=== PATIENT | male | born 1940 | race Caucasian/White ===

== ENCOUNTER 2022-10-08 21:55 | Inpatient (IN) | payer MEDICARE ==
[~2022-10-08] VITALS: Ht 180.3 cm; Wt 93.2 kg
--- NOTE | 2022-10-08 22:07 | NUR ---
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
[2022-10-08 22:42] LABS: BASOPHILS % (AUTO) 0.3 % (0-1); EOSINOPHILS # (AUTO) 0.1 X10'3 (0-0.9); EOSINOPHILS % (AUTO) 0.8 % (0-6); HEMATOCRIT 37.1 % (42.0-52.0); HEMOGLOBIN 12.3 g/dl (14.0-17.9); LYMPHOCYTES # (AUTO) 1.6 X10'3 (1.1-4.8); LYMPHOCYTES % (AUTO) 18.4 % (21-51); MEAN CORPUSCULAR HEMOGLOBIN 32.1 PG (27.0-31.0); MEAN CORPUSCULAR HGB CONC 33.2 g/dL (33.0-36.5); MEAN CORPUSCULAR VOLUME 96.7 FL (78-98); MEAN PLATELET VOLUME 9.3 FL (7.4-10.4); MONOCYTES # (AUTO) 0.9 X10'3 (0-0.9); MONOCYTES % (AUTO) 10.3 % (2-12); NEUTROPHILS # (AUTO) 6.1 X10'3 (1.8-7.7); NEUTROPHILS % (AUTO) 70.2 % (42-75); PLATELET COUNT 287 X10'3 (140-440); RED BLOOD COUNT 3.84 X10'6 (4.70-6.10); WHITE BLOOD COUNT 8.7 X10'3 (4.5-11.0)
[2022-10-08 22:58] LABS: ALANINE AMINOTRANSFERASE 6 U/L (12-78); ALBUMIN 3.1 G/DL (3.4-5.0); ALBUMIN/GLOBULIN RATIO 0.8 (1.1-1.5); ALKALINE PHOSPHATASE 50 IU/L (46-116); ANION GAP 11 (8-16); ASPARTATE AMINO TRANSFERASE 18 U/L (10-37); BILIRUBIN,TOTAL 0.7 MG/DL (0.1-1.0); BLOOD UREA NITROGEN 16 MG/DL (7-18); BUN/CREATININE RATIO 10.8 (10.0-20.0); CHLORIDE 105 MMOL/L (99-107); CREATININE 1.48 MG/DL (0.60-1.10); GLUCOSE 99 MG/DL (70-104); POTASSIUM 3.7 MMOL/L (3.5-5.1); SODIUM 142 MMOL/L (135-145); TOTAL CARBON DIOXIDE 26.4 MMOL/L (24-32); eGFR 46 ML/MIN
--- NOTE | 2022-10-09 00:15 | NUR ---
PER SAVITA MORILLO TO D/C NGT
[2022-10-09 00:43] LABS: CLARITY,URINE SLIGHTLY CLOUDY (Clear); COLOR,URINE YELLOW (Yellow); GLUCOSE, URINE NEGATIVE (Neg); KETONES,URINE TRACE mg/dl (Neg); LEUKOCYTE ESTERASE ,URINE NEGATIVE (Neg); NITRITES, URINE NEGATIVE (Neg); OCCULT BLOOD,URINE SMALL (Neg); PROTEIN,URINE TRACE mg/dl (Neg); UROBILINOGEN,URINE 0.2 E.U/dL (0.2-1.0)
[2022-10-09] MEDS ORDERED: magnesium 4gm in 100ml NS 100 ML IV PRN (00:45)
[2022-10-09] MEDS ORDERED: mag hydrox/Alum hydrox/simeth 30ml oral suspension PO PRN (00:45)
[2022-10-09] MEDS ORDERED: potassium Cl 40MEQ/1/2NS 520ml 520 ML IV PRN (00:45)
[2022-10-09] MEDS ORDERED: magnesium 2GM in 50ml NS 50 ML IV PRN (00:45)
[2022-10-09] MEDS ORDERED: acetaminophen 325mg tablet PO PRN (00:45)
[2022-10-09] MEDS ORDERED: ondansetron/PF 4mg/2ml inj IV PRN (00:45)
[2022-10-09] MEDS ORDERED: potassium Cl 20 mEq SR tablet PO PRN (00:45)
[2022-10-09] MEDS ORDERED: PERFLUTREN PROTEIN-A MICROSPHR (Optison) 0.22 MG/ML 3ML VIAL IV PRN (00:45)
[2022-10-09] MEDS ORDERED: magnesium Cl slow-release 64mg tablet PO PRN (00:45)
[2022-10-09] MEDS: normal saline 1000ml 1,000 ML IV SCH ×2 (00:51→02:26)
[2022-10-09 00:52] LABS: UA COLLECTION TYPE FOLEY CATH
[2022-10-09 00:53] LABS: BACTERIA,URINE NONE SEEN /HPF (Neg); WBC,URINE 0-4 /HPF (0-4)
[2022-10-09 00:54] LABS: MUCUS STRANDS FEW /LPF (Neg); RENAL CELLS, URINE FEW /HPF; SQUAMOUS EPITHELIAL CELL,UR FEW /LPF (FEW); TRANSITIONAL EPI CELLS,URINE FEW /HPF
--- NOTE | 2022-10-09 01:04 | NUR ---
NG TUBE DISCONTINUED WITHOUT ISSUE
[2022-10-09] MEDS ORDERED: BICA50TA7 PO (01:40)
[2022-10-09] MEDS ORDERED: ALFU10TA10 PO (01:40)
[2022-10-09] MEDS ORDERED: WARF-55 PO ×2 (01:40→01:45)
[2022-10-09] MEDS ORDERED: M-171CAP PO (01:40)
--- NOTE | 2022-10-09 01:44 | NUR ---
ATTEMPTED TO CALL REPORT. NURSE IS WITH A PATIENT AND WILL CALL BACK IN 5 MINUTES
[2022-10-09] MEDS ORDERED: WARF4TAB69 PO (01:45)
--- NOTE | 2022-10-09 01:50 | NUR ---
Patient in room [facility]TH[facility] 4011. I have received report from Melvi RN and had the opportunity to ask questions and assume patient care.
[2022-10-09 02:00] VITALS: BP 119/48
[2022-10-09 06:40] LABS: MAGNESIUM 1.8 MG/DL (1.5-2.4); POTASSIUM 3.4 MMOL/L (3.5-5.1)
--- NOTE | 2022-10-09 06:42 | NUR ---
Patient in room ORTHO 4011. I have received report from CESAR Dhillno and had the opportunity to ask questions and assume patient care.
[2022-10-09 07:00] VITALS: BP 140/65
[2022-10-09] MEDS: K and/or MAG REPLACEMENT MC SCH ×2 (07:40→20:00)
[2022-10-09] MEDS: docusate sod 100mg capsule PO SCH ×2 (08:20→21:36)
--- NOTE | 2022-10-09 09:51 | NUR ---
PAGER ID: [phone] MESSAGE: Rachel Acuña [id number]. Patient complaining of 8/10 lower abdominal pain. No pain meds ordered. Thank you, Chelita [phone]
[2022-10-09] MEDS: magnesium hydroxide 30ml (MOM) UD suspension PO PRN (09:59)
[2022-10-09] MEDS ORDERED: morphine 2 MG/ML inj. syringe IV PRN (10:40)
[2022-10-09] MEDS ORDERED: bisacodyl 10mg suppository rectal RC STA (10:46)
[2022-10-09 11:00] VITALS: BP 156/64
--- NOTE | 2022-10-09 13:20 | NUR ---
Patient Marcos DC without incident. Will continue to monitor urine output.
[2022-10-09] MEDS: potassium Cl 20 mEq SR tablet PO PRN ×2 (16:55→21:36)
[2022-10-09 18:00] VITALS: BP 161/63
--- NOTE | 2022-10-09 18:23 | NUR ---
Problems reprioritized. Patient report given, questions answered & plan of care reviewed with CESAR Shukla.
[2022-10-09] MEDS ORDERED: alfuzosin 10MG TAB.SR.24H PO SCH (21:00)
[2022-10-09] MEDS ORDERED: warfarin 5mg tablet PO ONE (21:00)
[2022-10-09] MEDS: HYDROcodone/acetaminophen 5mg/325mg tablet PO PRN (21:36)
[2022-10-09 22:00] VITALS: BP 144/66
--- NOTE | 2022-10-09 23:23 | NUR ---
Pt. made aware he needs to bring in home meds.
[2022-10-10 04:22] LABS: BASOPHILS % (AUTO) 0.5 % (0-1); EOSINOPHILS # (AUTO) 0.1 X10'3 (0-0.9); EOSINOPHILS % (AUTO) 0.8 % (0-6); HEMATOCRIT 36.9 % (42.0-52.0); HEMOGLOBIN 12.4 g/dl (14.0-17.9); LYMPHOCYTES # (AUTO) 1.5 X10'3 (1.1-4.8); LYMPHOCYTES % (AUTO) 16.6 % (21-51); MEAN CORPUSCULAR HEMOGLOBIN 32.1 PG (27.0-31.0); MEAN CORPUSCULAR HGB CONC 33.6 g/dL (33.0-36.5); MEAN CORPUSCULAR VOLUME 95.5 FL (78-98); MEAN PLATELET VOLUME 9.7 FL (7.4-10.4); MONOCYTES # (AUTO) 0.8 X10'3 (0-0.9); MONOCYTES % (AUTO) 8.5 % (2-12); NEUTROPHILS # (AUTO) 6.6 X10'3 (1.8-7.7); NEUTROPHILS % (AUTO) 73.6 % (42-75); PLATELET COUNT 276 X10'3 (140-440); RED BLOOD COUNT 3.86 X10'6 (4.70-6.10); RED CELL DISTRIBUTION WIDTH 13.8 % (11.5-14.5)
[2022-10-10 04:43] LABS: ALANINE AMINOTRANSFERASE 13 U/L (12-78); ALBUMIN 2.8 G/DL (3.4-5.0); ALBUMIN/GLOBULIN RATIO 0.8 (1.1-1.5); ALKALINE PHOSPHATASE 45 IU/L (46-116); ANION GAP 12 (8-16); ASPARTATE AMINO TRANSFERASE 18 U/L (10-37); BILIRUBIN,TOTAL 0.7 MG/DL (0.1-1.0); BLOOD UREA NITROGEN 17 MG/DL (7-18); BUN/CREATININE RATIO 13.5 (10.0-20.0); CALCIUM 8.7 MG/DL (8.5-10.1); CHLORIDE 105 MMOL/L (99-107); CREATININE 1.26 MG/DL (0.60-1.10); GLUCOSE 89 MG/DL (70-104); MAGNESIUM 1.9 MG/DL (1.5-2.4); POTASSIUM 3.8 MMOL/L (3.5-5.1); SODIUM 141 MMOL/L (135-145); TOTAL CARBON DIOXIDE 24.2 MMOL/L (24-32); TOTAL PROTEIN 6.4 G/DL (6.4-8.2); eGFR 55 ML/MIN
[2022-10-10] MEDS: HYDROcodone/acetaminophen 5mg/325mg tablet PO PRN (05:45)
[2022-10-10 06:00] VITALS: BP 150/54
--- NOTE | 2022-10-10 06:41 | NUR ---
Gave report to TONIE Larios
--- NOTE | 2022-10-10 06:44 | NUR ---
Patient in room ORTHO 4011. I have received report from SHERYL GUERRERO and had the opportunity to ask questions and assume patient care.
[2022-10-10] MEDS ORDERED: mineral oil 133ml enema RC SCH (08:00)
[2022-10-10] MEDS: K and/or MAG REPLACEMENT MC SCH ×2 (08:00→20:00)
[2022-10-10] MEDS: apixaban 5mg tablet PO SCH ×2 (08:35→20:20)
[2022-10-10] MEDS: docusate sod 100mg capsule PO SCH ×2 (08:35→20:20)
[2022-10-10] MEDS: metoclopramide 5 mg/ml inj IV SCH ×3 (09:57→20:20)
[2022-10-10 10:00] VITALS: BP 140/44
[2022-10-10] MEDS: HYDROcodone/acetaminophen 10/325mg tab PO PRN ×2 (10:01→19:01)
[2022-10-10 18:00] VITALS: BP 146/58
--- NOTE | 2022-10-10 18:50 | NUR ---
Patient in room ORTHO 4011. I have received report from Harriet SCHILLING and had the opportunity to ask questions and assume patient care.
--- NOTE | 2022-10-10 18:52 | NUR ---
Problems reprioritized. Patient report given, questions answered & plan of care reviewed with audrey GUERRERO.
[2022-10-10 22:00] VITALS: BP 145/67
[2022-10-10] MEDS: mineral oil 133ml enema RC SCH (22:32)
[2022-10-10] MEDS ORDERED: alfuzosin 10MG TAB.SR.24H PO SCH (22:39)
[2022-10-10] MEDS ORDERED: alfuzosin 10MG TAB.SR.24H PO ONE (22:59)
[2022-10-11] MEDS: normal saline 1000ml 1,000 ML IV SCH ×2 (00:45→20:20)
[2022-10-11] MEDS: HYDROcodone/acetaminophen 10/325mg tab PO PRN ×2 (02:11→23:26)
[2022-10-11] MEDS: metoclopramide 5 mg/ml inj IV SCH ×4 (02:12→21:07)
[2022-10-11 04:30] LABS: BASOPHILS % (AUTO) 0.3 % (0-1); EOSINOPHILS # (AUTO) 0.1 X10'3 (0-0.9); EOSINOPHILS % (AUTO) 1.6 % (0-6); HEMATOCRIT 34.8 % (42.0-52.0); LYMPHOCYTES # (AUTO) 1.1 X10'3 (1.1-4.8); LYMPHOCYTES % (AUTO) 13.9 % (21-51); MEAN CORPUSCULAR HEMOGLOBIN 32.8 PG (27.0-31.0); MEAN CORPUSCULAR HGB CONC 34.6 g/dL (33.0-36.5); MEAN CORPUSCULAR VOLUME 94.8 FL (78-98); MONOCYTES # (AUTO) 0.8 X10'3 (0-0.9); MONOCYTES % (AUTO) 10.1 % (2-12); NEUTROPHILS # (AUTO) 5.7 X10'3 (1.8-7.7); NEUTROPHILS % (AUTO) 74.1 % (42-75); PLATELET COUNT 245 X10'3 (140-440); RED BLOOD COUNT 3.67 X10'6 (4.70-6.10); RED CELL DISTRIBUTION WIDTH 13.8 % (11.5-14.5); WHITE BLOOD COUNT 7.7 X10'3 (4.5-11.0)
[2022-10-11 05:02] LABS: ALANINE AMINOTRANSFERASE 19 U/L (12-78); ALBUMIN 2.8 G/DL (3.4-5.0); ALBUMIN/GLOBULIN RATIO 0.8 (1.1-1.5); ALKALINE PHOSPHATASE 46 IU/L (46-116); ANION GAP 12 (8-16); ASPARTATE AMINO TRANSFERASE 27 U/L (10-37); BILIRUBIN,TOTAL 0.7 MG/DL (0.1-1.0); BLOOD UREA NITROGEN 16 MG/DL (7-18); BUN/CREATININE RATIO 11.8 (10.0-20.0); CALCIUM 8.4 MG/DL (8.5-10.1); CHLORIDE 103 MMOL/L (99-107); CREATININE 1.36 MG/DL (0.60-1.10); GLUCOSE 91 MG/DL (70-104); MAGNESIUM 1.9 MG/DL (1.5-2.4); POTASSIUM 3.6 MMOL/L (3.5-5.1); SODIUM 140 MMOL/L (135-145); TOTAL CARBON DIOXIDE 25.5 MMOL/L (24-32); TOTAL PROTEIN 6.3 G/DL (6.4-8.2); eGFR 50 ML/MIN
[2022-10-11 06:00] VITALS: BP 116/56
--- NOTE | 2022-10-11 06:35 | NUR ---
Problems reprioritized. Patient report given, questions answered & plan of care reviewed with Delmi GUERRERO.
[2022-10-11] MEDS: K and/or MAG REPLACEMENT MC SCH ×2 (08:00→20:00)
[2022-10-11] MEDS: mineral oil 133ml enema RC SCH ×2 (08:00→20:38)
[2022-10-11] MEDS: docusate sod 100mg capsule PO SCH ×2 (08:16→20:33)
[2022-10-11] MEDS: apixaban 5mg tablet PO SCH ×2 (08:16→20:33)
[2022-10-11] MEDS: magnesium hydroxide 30ml (MOM) UD suspension PO PRN (08:28)
[2022-10-11 10:00] VITALS: BP 169/72
--- NOTE | 2022-10-11 16:34 | NUR ---
patient continues to refuse enema. Encouraged to ambulate in [place].
[2022-10-11 18:00] VITALS: BP 154/67
[2022-10-11] MEDS: alfuzosin 10MG TAB.SR.24H PO SCH (20:33)
--- NOTE | 2022-10-11 21:00 | NUR ---
SENIOR CONSTRUCTION ESTIMATOR documentation: I have reviewed and agree with all , assessments performed and documented by Teodora SCHILLING.
[2022-10-11 22:00] VITALS: BP 136/64
--- NOTE | 2022-10-12 01:28 | NUR ---
pt has given consent to allow jude to have knowledge of his medical condition.
[2022-10-12] MEDS: metoclopramide 5 mg/ml inj IV SCH ×2 (02:43→07:41)
[2022-10-12 06:00] VITALS: BP 139/60
--- NOTE | 2022-10-12 06:28 | NUR ---
Problems reprioritized. Patient report given, questions answered & plan of care reviewed with KIRIT GUERRERO.
[2022-10-12 06:57] LABS: BASOPHILS % (AUTO) 0.7 % (0-1); EOSINOPHILS # (AUTO) 0.1 X10'3 (0-0.9); EOSINOPHILS % (AUTO) 2.1 % (0-6); HEMATOCRIT 35.9 % (42.0-52.0); LYMPHOCYTES # (AUTO) 1.5 X10'3 (1.1-4.8); LYMPHOCYTES % (AUTO) 22.3 % (21-51); MEAN CORPUSCULAR HGB CONC 33.5 g/dL (33.0-36.5); MEAN CORPUSCULAR VOLUME 95.7 FL (78-98); MEAN PLATELET VOLUME 9.8 FL (7.4-10.4); MONOCYTES # (AUTO) 0.9 X10'3 (0-0.9); MONOCYTES % (AUTO) 13.5 % (2-12); NEUTROPHILS % (AUTO) 61.4 % (42-75); PLATELET COUNT 259 X10'3 (140-440); RED BLOOD COUNT 3.75 X10'6 (4.70-6.10); RED CELL DISTRIBUTION WIDTH 13.7 % (11.5-14.5); WHITE BLOOD COUNT 6.5 X10'3 (4.5-11.0)
[2022-10-12 07:11] LABS: ALANINE AMINOTRANSFERASE 17 U/L (12-78); ALBUMIN 2.8 G/DL (3.4-5.0); ALBUMIN/GLOBULIN RATIO 0.8 (1.1-1.5); ALKALINE PHOSPHATASE 48 IU/L (46-116); ANION GAP 7 (8-16); ASPARTATE AMINO TRANSFERASE 20 U/L (10-37); BILIRUBIN,TOTAL 0.8 MG/DL (0.1-1.0); BLOOD UREA NITROGEN 13 MG/DL (7-18); BUN/CREATININE RATIO 10.2 (10.0-20.0); CALCIUM 8.6 MG/DL (8.5-10.1); CHLORIDE 104 MMOL/L (99-107); CREATININE 1.27 MG/DL (0.60-1.10); GLUCOSE 93 MG/DL (70-104); MAGNESIUM 2.2 MG/DL (1.5-2.4); POTASSIUM 3.3 MMOL/L (3.5-5.1); SODIUM 137 MMOL/L (135-145); TOTAL CARBON DIOXIDE 25.9 MMOL/L (24-32); TOTAL PROTEIN 6.4 G/DL (6.4-8.2); eGFR 55 ML/MIN
[2022-10-12] MEDS: docusate sod 100mg capsule PO SCH ×2 (07:40→20:37)
[2022-10-12] MEDS: apixaban 5mg tablet PO SCH ×2 (07:40→20:37)
[2022-10-12] MEDS: K and/or MAG REPLACEMENT MC SCH ×2 (08:00→20:00)
[2022-10-12 10:00] VITALS: BP 131/68
[2022-10-12 18:00] VITALS: BP_SYST 101; BP_SYST 149; BP_DIAS 47; BP_DIAS 70
--- NOTE | 2022-10-12 18:00 | NUR ---
Patient in room [facility]TH[facility] 4011. I have received report from CESAR BETH and had the opportunity to ask questions and assume patient care.
[2022-10-12] MEDS: alfuzosin 10MG TAB.SR.24H PO SCH (20:37)
[2022-10-12 22:00] VITALS: BP 101/47
[2022-10-13] MEDS: normal saline 1000ml 1,000 ML IV SCH (00:45)
[2022-10-13 06:00] VITALS: BP 131/61
[2022-10-13 06:39] LABS: BASOPHILS % (AUTO) 0.8 % (0-1); EOSINOPHILS # (AUTO) 0.1 X10'3 (0-0.9); EOSINOPHILS % (AUTO) 2.3 % (0-6); HEMATOCRIT 35.1 % (42.0-52.0); HEMOGLOBIN 11.9 g/dl (14.0-17.9); LYMPHOCYTES # (AUTO) 1.6 X10'3 (1.1-4.8); LYMPHOCYTES % (AUTO) 27.1 % (21-51); MEAN CORPUSCULAR HEMOGLOBIN 32.5 PG (27.0-31.0); MEAN CORPUSCULAR HGB CONC 33.9 g/dL (33.0-36.5); MEAN CORPUSCULAR VOLUME 96.1 FL (78-98); MEAN PLATELET VOLUME 9.5 FL (7.4-10.4); MONOCYTES # (AUTO) 0.8 X10'3 (0-0.9); MONOCYTES % (AUTO) 13.4 % (2-12); NEUTROPHILS # (AUTO) 3.2 X10'3 (1.8-7.7); NEUTROPHILS % (AUTO) 56.4 % (42-75); PLATELET COUNT 243 X10'3 (140-440); RED BLOOD COUNT 3.65 X10'6 (4.70-6.10); RED CELL DISTRIBUTION WIDTH 14.2 % (11.5-14.5); WHITE BLOOD COUNT 5.7 X10'3 (4.5-11.0)
--- NOTE | 2022-10-13 06:40 | NUR ---
Problems reprioritized. Patient report given, questions answered & plan of care reviewed with CESAR BETH.
[2022-10-13 06:59] LABS: ALANINE AMINOTRANSFERASE 17 U/L (12-78); ALBUMIN 2.9 G/DL (3.4-5.0); ALBUMIN/GLOBULIN RATIO 0.8 (1.1-1.5); ALKALINE PHOSPHATASE 51 IU/L (46-116); ANION GAP 7 (8-16); ASPARTATE AMINO TRANSFERASE 18 U/L (10-37); BILIRUBIN,TOTAL 0.8 MG/DL (0.1-1.0); BLOOD UREA NITROGEN 16 MG/DL (7-18); BUN/CREATININE RATIO 10.8 (10.0-20.0); CALCIUM 8.7 MG/DL (8.5-10.1); CHLORIDE 105 MMOL/L (99-107); CREATININE 1.48 MG/DL (0.60-1.10); GLUCOSE 104 MG/DL (70-104); MAGNESIUM 2.2 MG/DL (1.5-2.4); POTASSIUM 3.4 MMOL/L (3.5-5.1); SODIUM 138 MMOL/L (135-145); TOTAL CARBON DIOXIDE 25.6 MMOL/L (24-32); TOTAL PROTEIN 6.4 G/DL (6.4-8.2); eGFR 46 ML/MIN
[2022-10-13] MEDS: K and/or MAG REPLACEMENT MC SCH (08:00)
[2022-10-13] MEDS: apixaban 5mg tablet PO SCH (08:20)
[2022-10-13] MEDS: docusate sod 100mg capsule PO SCH (08:20)
[2022-10-13 10:00] VITALS: BP 148/67
[2022-10-13] MEDS ORDERED: DOCU100C40 PO (11:51)
[2022-10-13] MEDS ORDERED: APIX5TAB3 PO (11:51)
--- NOTE | 2022-10-13 15:13 | NUR ---
Call to patient regarding home meds locked in our pharmacy. He will have to come to town in a few days to pick them up. [place].
[2022-10-24] MEDS ORDERED: WARF-55 PO (13:59)
[2022-10-24] MEDS ORDERED: WARF4TAB69 PO (13:59)
[2022-10-24] MEDS ORDERED: WARF1TAB83 PO (14:00)
[2022-10-26] MEDS ORDERED: ACET-1008 PO (12:56)
[2022-10-27] MEDS ORDERED: SENN1TAB82 PO (17:31)
== END 2022-10-13 14:25 | disposition home or self-care (01) | DRG 388 ==
LOC: ER 21:56 → ED HOLD 10-09 00:45 → ORTHO 4S 10-09 02:13
PROVIDERS: ADMIT Internal Medicine; ATTEND Internal Medicine
DX: K56.41 Fecal impaction (principal); N17.0 Acute kidney failure with tubular necrosis; C77.9 Secondary and unspecified malignant neoplasm of lymph node, unspecified; N13.30 Unspecified hydronephrosis; N18.9 Chronic kidney disease, unspecified; E87.6 Hypokalemia; C61 Malignant neoplasm of prostate; F12.90 Cannabis use, unspecified, uncomplicated; Z79.01 Long term (current) use of anticoagulants; Z86.711 Personal history of pulmonary embolism; I12.9 Hypertensive chronic kidney disease with stage 1 through stage 4 chronic kidney disease, or unspecified chronic kidney disease
CPT/HCPCS: 36415; 71045; 74018; 80053; 81001; 83735; 83880; 84132; 84145; 84484; 85025; 85610; 87081; 93005; 93306; 99285; G0378; J2270; J2405; J2765; J7030